=== PATIENT | female | born 1985 | race Caucasian/White ===

== ENCOUNTER 2018-12-01 11:37 | Outpatient (CLI) | payer MEDICAID ==
[~2018-12-01] VITALS: Ht 162.6 cm; Wt 102.3 kg
[~2018-12-01 11:37] MED LIST: LEVO300T8; METH-480 BU; METH-480 PO; PREN-46 PO; PREN1TAB17 BU
[2018-12-01 11:41] VITALS: Ht 162.6 cm; Wt 102.3 kg
[2018-12-01] MEDS ORDERED: INSU100C SQ (11:54)
[2018-12-01] MEDS ORDERED: NOVO7030 SC (11:54)
[2018-12-01] MEDS ORDERED: LEVO-86 PO (11:54)
[2018-12-01] MEDS ORDERED: METF100010 PO (11:54)
[2018-12-01] MEDS ORDERED: CEFTRIAXONE 1 GM INJ IM ONE (12:00)
[2018-12-01] MEDS ORDERED: CEFTRIAXONE 1 GM/50 ML (PMX) 50 ML IVPB ONE (12:30)
[2018-12-01] MEDS: SOD CHLORIDE 0.9% 1,000 ML IV SCH ×2 (12:46→14:33)
[2018-12-01] MEDS ORDERED: ACETAMINOPHEN 325 MG TAB PO ONE (13:30)
[2018-12-01] MEDS ORDERED: INSULIN ASPART [NOVOLOG] 3 ML PEN SC ONE (13:30)
[2018-12-01] MEDS ORDERED: ACETAMINOPHEN 1000MG/100ML IV 100 ML IVPB ONE (14:00)
[2018-12-01] MEDS ORDERED: ACCU-CHEK XX ONE (15:30)
--- NOTE | 2018-12-01 17:08 | PN ---
Triage Information Date/Time December 01, 2018 Reason for visit: Abd/pelvic pain (left, lower quadrant) Weeks of Gestation 9w 6d /Para 2/1 Diabetes: pre-gestational Diabetes management: insulin controlled, oral agent Hypertention: none Additional information Pt reports left lower quadrant pain since yesterday. She went to [facility] and had labwork, an US and was sent home on Ampicillin, in case it is her diverticulitis, and was also given [place]. She did not fill these prescriptions yet. Pt reports slight brown d/c, ongoing. She had an US at [facility] and in my office which show a viable and a small blood clot in the lower uterine segment. She denies any urgency or frequency or dysuria. No fever, chills, nausea or vomiting. PMHx: DM. Was on Metformin prior to with poorly controlled blood sugars and an initial HgbA1c of 11.8 and a RBS of 320. She is now on Metformin 1000 BID and Insulin: Humalog 18u with each meal. She is being followed by Dr Davenport. Hypothyroidism after a I-131 ablation. Asthma. PCOS. H/o diverticulitis. PSHx: partial thyroidectomy. Liposuction. Appendectomy. Cholecystectomy. x 1 at 31 weeks for severe PIH. NKDA. Objective Afebrile, normotensive. Heart Rate: 140's Results/Medications Results 24 hrs Laboratory Tests Test 12/01/18 11:39 12/01/18 12:40 12/01/18 15:46 Urine Color YELLOW Urine Clarity SLIGHTLY CLOUDY A Urine pH 5.0 Urine Specific [place] 1.021 Urine Ketones NEGATIVE Urine Nitrite NEGATIVE Urine Bilirubin NEGATIVE Urine Urobilinogen NEGATIVE Urine Leukocyte Esterase TRACE A Urine Microscopic RBC 1 Urine Microscopic WBC 0 Urine Squamous FEW Epithelial Cells Urine Bacteria FEW A Urine Mucus FEW A Urine Hemoglobin NEGATIVE Urine Glucose NEGATIVE Urine Total Protein NEGATIVE Bedside Glucose 206 105 Disposition: Discharge Assessment/Plan A: IUP at 9w 6d. Left lower quadrant pain. Possible kidney stone. P: Pt was given 2 liters of NS and one dose of IV Tylenol. She was given her 18 units of Humalog as she did not take her morning Metformin nor her AM insulin as she did not eat breakfast and ate lunch in the cafeteria (a tuna melt) and needs her insulin but did not have the needles for her own insulin pen?!? Pt reports a headache and the same pain. Pt's urine was concentrated and cloudy and she has only urinated once since at the hospital after 2 liters. She says it is a bit greenskeeper in color. A urine culture was done. Discussed with the pt that this does not appear to be an OB-Geological Engineering Teacher problem but a medical problem. On US we have not seen anything to account for the left sided pain. The is viable. At this early of a stage any pain related to bleeding or a blood clot would be central, not left-sided. She does not have an appendix. This leaves either diverticulitis for which the antibiotics should help or a kidney stone and usually home management is reasonable with hydration and pain meds and she has agreed to return to the emergency room if it does not resolve. She opted to not go down to the ER at this time. Pt is discharged home and is to fill the Rx's given to her by [facility]. JUAN JOSÉ DOWD MD Dec 01, 2018 16:52
--- NOTE | 2018-12-01 17:27 | TRIAGE ---
OB Triage Datetime Report Generated by CPN: 12/01/2018 17:26 Datetime: 12/01/2018 13:00 Stage of : OB Triage Heart Rate FHR Baseline Rate: 165 Monitor Mode: Doppler Comments: Audible Heart tones heard Datetime: 12/01/2018 12:29 Time of Arrival: 12/01/2018 11:30 Arrived By: Wheelchair Arrived From: Dr. Office Chief Complaint: Left lower quadrant pain Vaginal Bleeding: Dark Red Patient Complaints: Other Provider Notified: Bert Initial Plan: Orders for IV hydration with NS, Rocephin 1G, UA, Urine Culture Datetime: 12/01/2018 12:05 Stage of : OB Triage Datetime: 12/01/2018 12:00 Stage of : OB Triage Maternal Assessment Level of Consciousness: Fully Conscious DTR's/Clonus: DTRs 2+ Headache: Denies Blurred Vision: No Respiratory Effort: Unlabored; Regular Rhythm; Equal Expansion Breath Sounds, Left: Clear and Equal Breath Sounds, Right: Clear and Equal Nausea/Vomiting: Denies RUQ Epigastric Pain: Denies Lower Extremities Edema: None Degree: None Upper Extremities Edema: None Degree: None Facial Edema: None Temperature Route: Oral Fall Risk Assessment History of Falling: (0) No Secondary Diagnosis: (0) No Ambulatory Aid: (0) Bedrest/Nurse Assist IV Therapy: (0) No Gait: (0) Normal/Bedrest/Immobile Mental Status: (0) Oriented to Own Ability Fall Score: 0 Fall Risk Score Definition: No Risk: No action required
== END 2018-12-01 16:08 | disposition home or self-care (01) ==
LOC: OBT 11:37 → L-D 11:37 → OBT 16:08
PROVIDERS: ATTEND Obstetrics & Gynecology
DX: O26.891 Other specified pregnancy related conditions, first trimester (principal); R10.32 Left lower quadrant pain; O24.414 Gestational diabetes mellitus in pregnancy, insulin controlled; Z3A.09 9 weeks gestation of pregnancy
CPT/HCPCS: 36415; 81001; 82962; 87086; 96365; J0131; J0696; J1815; J7030; Z7500; G0463

== ENCOUNTER 2018-12-02 05:59 | Observation (INO) | payer MEDICAID ==
[~2018-12-02] VITALS: Ht 162.6 cm; Wt 101.0 kg
[~2018-12-02 05:59] MED LIST changes: +INSU100C SQ; +LEVO-86 PO; -LEVO300T8; +METF100010 PO; -METH-480 BU; -METH-480 PO; +NOVO7030 SC; -PREN1TAB17 BU
[2018-12-02] MEDS ORDERED: morphine 2 MG INJ IV STA (06:46)
[2018-12-02] MEDS ORDERED: SOD CHLORIDE 0.9% 150 ML IV STA (06:46)
[2018-12-02] MEDS ORDERED: ONDANSETRON 4 MG INJ IV STA (06:46)
[2018-12-02] MEDS ORDERED: PIPER-TAZO 3.375 GM IV (PMX) 100 ML IVPB ONE (08:00)
--- NOTE | 2018-12-02 08:04 | ERD ---
ER Documentation Chief Complaint Chief Complaint L flank pain since Tuesday w/hematuria vs VB; advised to come x further tx HPI 33-year-old female presents the emergency room with left lower quadrant abdominal pain. Patient has been in the emergency department now 3 times for similar type complaints. Her pain began approximately 3 days ago when she had the acute onset of an isolated left lower quadrant and left flank pain. This was associated with hematuria and questionable vaginal bleeding. She was evaluated in outside emergency department where apparently initial diagnostic tests demonstrated a viable and she was treated empirically for diverticulitis. Because of her , no further imaging was performed. She then followed up with her arts administrator yesterday who demonstrated an intrauterine that was viable. Patient however continued to have pain despite the use of fluids and pain medication during the ER evaluation as well as outpatient antibiotics for presumed diverticulitis. She returns this morning with her third evaluation for left lower quadrant abdominal pain which has not significantly changed. Pain continues to be localized in the left lower quadrant. She states that she continues to have hematuria and possible small amount of vaginal bleeding. She denies fevers, chills. She reports nausea without vomiting. She reports no diarrhea. ROS All systems reviewed and are negative except as per history of present illness. Medications Home Meds Reported Medications Insulin Isophan/Regular (Humulin 70/30) 100 Units/Ml Susp, 25 UNIT SC HS, EA 12/01/18 Insulin Lispro (Humalog) 100 Unit/1 Ml Cartridge, 18 UNIT SQ AC MEALS, EA 12/01/18 Levothyroxine Sodium (Levothroid) 100 Mcg Tablet, 39 MCG PO BEFORE BREAKFAST, #30 TAB 12/01/18 Metformin Hcl* (Metformin Hcl*) 1,000 Mg Tablet, 1000 MG PO WITH BREAKFAST DINNE, #60 TAB 12/01/18 Vit #108/Iron/Fa ( ONE TABLET) 1 Each Tablet, 1 EACH PO DAILY 08/07/13 Discontinued Reported Medications Methyldopa* (Aldomet*) 500 Mg Tab, 500 MG BU DAILY 08/28/13 Vit-Iron Fumarate-FA ( Tablet) 1 Each Tablet, 1 EACH BU DAILY 08/28/13 Methyldopa* (Aldomet*) 500 Mg Tab, 500 MG PO BID 08/18/13 Levothyroxine Sodium (Levothroid) 300 Mcg Tablet, 300 MCG DAILY 08/07/13 Allergies Allergies: Coded Allergies: No Known Allergies (Verified Allergy, Unknown, 12/01/18) FmHx Noncontributory for chief complaint Physical Exam Vitals Vital Signs Date Temp Pulse Resp B/P (MAP) Pulse Ox O2 O2 Flow FiO2 Time Delivery Rate 12/02/18 99.2 75 20 147/92 100 06:12 (110) Physical Exam GENERAL: The patient is well developed and appropriate for usual state of health in no apparent distress. She appears uncomfortable HEENT: Pupils equal, round, and reactive to light. EOMI. There is no scleral icterus. NECK: C-spine is soft and supple, there is no meningismus. There is no cervical lymphadenopathy. LUNGS: Clear to auscultation bilaterally. There are no rales, wheezes or rhonchi. HEART: Regular rate and rhythm, no murmurs, clicks, rubs or gallops. ABDOMEN: Soft, non-tender, non-distended. There are bowel sounds in all four quadrants. No rebound or guarding. EXTREMITIES: There is no peripheral cyanosis or edema. No focal swelling or erythema. NEURO: The patient moves all four extremities with 5/5 strength. Cranial nerves II - XII are intact. Normal gait. Alert and oriented SKIN: There is no apparent rash or petechiae. HEME/LYMPHATIC: There is no evidence of excessive bruising or lymphedema. PSYCHIATRIC: The patient does not appear anxious or depressed. Result Diagram: 12/02/18 0640 12/02/18 0640 Results 24 hrs Laboratory Tests Test 12/02/18 04:57 12/02/18 06:40 Urine Color STRAW Urine Clarity CLEAR Urine pH 5.0 Urine Specific [place] 1.005 Urine Ketones NEGATIVE mg/dL Urine Nitrite NEGATIVE mg/dL Urine Bilirubin NEGATIVE mg/dL Urine Urobilinogen NEGATIVE mg/dL Urine Leukocyte Esterase NEGATIVE Jordy/ul Urine Microscopic RBC 0 /HPF Urine Microscopic WBC 0 /HPF Urine Squamous Epithelial Cells FEW /HPF Urine Bacteria FEW /HPF Urine Hemoglobin 2+ mg/dL Urine Glucose NEGATIVE mg/dL Urine Total Protein NEGATIVE mg/dl White Blood Count 8.8 10^3/ul Red Blood Count 3.82 10^6/ul Hemoglobin 11.5 g/dl Hematocrit 34.1 % Mean Corpuscular Volume 89.3 fl Mean Corpuscular Hemoglobin 30.1 pg Mean Corpuscular Hemoglobin Concent 33.7 g/dl Red Cell Distribution Width 13.2 % Platelet Count 384 10^3/UL Mean Platelet Volume 10.2 fl Immature Granulocytes % 0.900 % Neutrophils % 58.3 % Lymphocytes % 32.0 % Monocytes % 7.3 % Eosinophils % 0.9 % Basophils % 0.6 % Nucleated Red Blood Cells % 0.0 /100WBC Immature Granulocytes # 0.080 10^3/ul Neutrophils # 5.1 10^3/ul Lymphocytes # 2.8 10^3/ul Monocytes # 0.6 10^3/ul Eosinophils # 0.1 10^3/ul Basophils # 0.1 10^3/ul Nucleated Red Blood Cells # 0.0 10^3/ul Sodium Level 139 mmol/L Potassium Level 4.1 mmol/L Chloride Level 108 mmol/L Carbon Dioxide Level 22 mmol/L Anion Gap 9 Blood Urea Nitrogen 9 mg/dl Creatinine 0.41 mg/dl Est Glomerular Filtrat Rate mL/min > 60 mL/min Glucose Level 133 mg/dl Calcium Level 9.3 mg/dl Total Bilirubin 0.3 mg/dl Direct Bilirubin 0.00 mg/dl Indirect Bilirubin 0.3 mg/dl Aspartate Amino Transf (AST/SGOT) 18 IU/L Alanine Aminotransferase (ALT/SGPT) 15 IU/L Alkaline Phosphatase 97 IU/L Total Protein 7.2 g/dl Albumin 3.8 g/dl Globulin 3.40 g/dl Albumin/Globulin Ratio 1.11 Lipase 107 U/L Current Medications Medications Dose Sig/Cm Start Time Status Last (Trade) Ordered Route PRN Stop Time Admin Dose Reason Admin Sodium 150 ml @ Q1H STAT 12/02/18 DC 12/02/18 Chloride 150 mls/hr IV 06:46 06:54 12/02/18 07:45 Morphine 2 mg ONCE STAT 12/02/18 DC 12/02/18 Sulfate IV 06:46 06:54 (morphine) 12/02/18 06:48 Ondansetron 4 mg ONCE STAT 12/02/18 DC 12/02/18 HCl (Zofran IV 06:46 06:54 Inj) 12/02/18 06:48 Piperacillin 100 ml @ ONCE ONCE 12/02/18 Sod/ 200 mls/hr IVPB 08:00 Tazobactam 12/02/18 08:29 Sod Procedures/MDM Patient was taken to a room, seen and evaluated. Comfort measures were initiated. Diagnostic tests were ordered and reviewed. RADIOLOGY: Reviewed with the radiologist CONSULTATION: Hospitalist was notified for admission after discussion with Dr. Noel, her OBGYN REEVALUATION: Serial examinations of the abdomen remained benign, but she continued to be somewhat uncomfortable. Diagnostic tests were discussed with her and arrangements were made for observation MEDICAL DECISION MAKIN-year-old female presents the emergency department left lower quadrant abdominal pain in the setting of a history of diverticulitis. Patient continues to have ongoing pain despite outpatient antibiotics for presumed diverticulitis. Her diagnostic workup today demonstrates evidence of a viable intrauterine with no evidence of kidney stones based on her ultrasound. Her urinalysis shows no evidence of urinary tract infection. However, she continues to be significantly uncomfortable. As per my conversations with the patient and her X RAY CONSULTANT, she w ill be admitted for pain control as well as an MRI evaluation of the abdomen to further diagnose if this truly is diverticulitis. She has already had her gallbladder and her appendix removed, so these concerns are not present. Departure Diagnosis: Primary Impression: Flank pain Condition: PRECIOUS Self Dec 02, 2018 08:04
[2018-12-02 09:50] VITALS: BP 113/56; PULSE 62; RESP 16
[2018-12-02 10:10] VITALS: Ht 162.6 cm; Wt 101.0 kg
[2018-12-02] MEDS ORDERED: D5W-0.45 NACL + KCL 20 MEQ 1,000 ML IV SCH (10:34)
[2018-12-02] MEDS ORDERED: GLUCOSE GEL 15 GRAM TUBE BUCCAL PRN (11:00)
[2018-12-02] MEDS ORDERED: HYDROCODONE/APAP (5/325) TAB PO PRN (11:00)
[2018-12-02] MEDS ORDERED: GLUCOSE GEL 15 GRAM TUBE PO PRN ×2 (11:00)
[2018-12-02] MEDS ORDERED: NACL 0.9% 3 ML SYG IV SCH (11:00)
[2018-12-02] MEDS ORDERED: DEXTROSE 50% 50 ML SYRINGE IV PRN ×2 (11:00)
[2018-12-02] MEDS ORDERED: morphine 2 MG INJ IV PRN (11:00)
[2018-12-02] MEDS ORDERED: GLUCAGON 1 MG INJ IM PRN (11:00)
[2018-12-02] MEDS ORDERED: ONDANSETRON 4 MG INJ IV PRN (11:00)
[2018-12-02] MEDS: LEVOTHYROXINE 25 MCG TAB PO SCH (11:45)
[2018-12-02] MEDS: INSULIN ASPART [NOVOLOG] 3 ML PEN SC SCH ×4 (12:55→21:00)
[2018-12-02] MEDS ORDERED: [UNRECOGNIZED DRUG - OTHER] PO SCH (13:00)
[2018-12-02] MEDS ORDERED: PRENATAL VIT PO SCH (13:00)
[2018-12-02] MEDS ORDERED: IRON PO SCH (13:00)
--- NOTE | 2018-12-02 13:03 | HP ---
Date/Time of Note Date/Time of Note DATE: 12/02/18 TIME: 12:50 Assessment/Plan VTE Prophylaxis SCD applied (from Nsg): Yes Pharmacological prophylaxis: NA/contraindicated Pharm contraindication: low risk/ambulating Lines/Catheters IV Catheter Type (from Nrsg): Peripheral IV Assessment/Plan Hospital Course 1. Abdominal pain Etiology is not fully clear at this time but may be secondary to abdominal wall pain, patient is tender to palpation throughout the pannus and due to obesity and expanding abdominal girth patient may have pain in the abdominal wall muscles No evidence of sepsis at this time to suggest diverticulitis in addition diverse location of pain goes against diverticulitis, patient denies fever or chills now or recently No evidence of UTI or nephrolithiasis No reports of constipation, diarrhea, nausea and vomiting to suggest gastroenteritis Patient with history of cholecystectomy and appendectomy No indication for antibiotics at this time Discuss case with patient's OB Dr. Noel Pain control 2. Intrauterine gestation OB to manage 3. Diabetes Resume home insulin Check A1c Carb controlled diet Hold home metformin 4. History of hyperthyroidism status post thyroidectomy now on replacement therapy Continue home Synthroid 5. Morbid obesity Lifestyle changes 6. Anemia of Monitor Prophylaxis: SCDs Result Diagram: 12/02/18 0640 12/02/18 0640 Results 24hrs Laboratory Tests Test 12/02/18 04:57 12/02/18 06:40 Urine Color STRAW Urine Clarity CLEAR Urine pH 5.0 Urine Specific [place] 1.005 Urine Ketones NEGATIVE Urine Nitrite NEGATIVE Urine Bilirubin NEGATIVE Urine Urobilinogen NEGATIVE Urine Leukocyte Esterase NEGATIVE Urine Microscopic RBC 0 Urine Microscopic WBC 0 Urine Squamous Epithelial Cells FEW Urine Bacteria FEW A Urine Hemoglobin 2+ H Urine Glucose NEGATIVE Urine Total Protein NEGATIVE White Blood Count 8.8 Red Blood Count 3.82 L Hemoglobin 11.5 L Hematocrit 34.1 L Mean Corpuscular Volume 89.3 Mean Corpuscular Hemoglobin 30.1 Mean Corpuscular Hemoglobin Concent 33.7 Red Cell Distribution Width 13.2 Platelet Count 384 Mean Platelet Volume 10.2 Immature Granulocytes % 0.900 H Neutrophils % 58.3 Lymphocytes % 32.0 Monocytes % 7.3 Eosinophils % 0.9 Basophils % 0.6 Nucleated Red Blood Cells % 0.0 Immature Granulocytes # 0.080 H Neutrophils # 5.1 Lymphocytes # 2.8 Monocytes # 0.6 Eosinophils # 0.1 Basophils # 0.1 Nucleated Red Blood Cells # 0.0 Sodium Level 139 Potassium Level 4.1 Chloride Level 108 Carbon Dioxide Level 22 Anion Gap 9 Blood Urea Nitrogen 9 Creatinine 0.41 L Est Glomerular Filtrat Rate mL/min > 60 Glucose Level 133 Calcium Level 9.3 Total Bilirubin 0.3 Direct Bilirubin 0.00 Indirect Bilirubin 0.3 Aspartate Amino Transf (AST/SGOT) 18 Alanine Aminotransferase (ALT/SGPT) 15 Alkaline Phosphatase 97 Total Protein 7.2 Albumin 3.8 Globulin 3.40 H Albumin/Globulin Ratio 1.11 Lipase 107 HPI/ROS Admit Date/Time Admit Date/Time Dec 02, 2018 at 08:05 Hx of Present Illness Patient is a 33-year-old female with a history of hypothyroidism as a child status post thyroid resection on thyroid therapy, morbid obesity, diverticulitis, insulin dependent diabetes. Patient presents with 3 days of stabbing pain in the left lower quadrant which is now begun to include the mid lower quadrant and right lower quadrant. Patient states that the severity of the pain is similar to previous episodes of diverticulitis but that the various locations are different from previous episodes. Patient was at [facility] 3 days ago and was prescribed antibiotics for possible recurrent diverticulitis, CT abdomen has been unable to be done secondary to intrauterine gestation. Patient saw her OB who recommended that she not take her antibiotics as it was unclear if this pain is indeed diverticulitis. Of note patient reported some blood in the urine but UA is negative for infection or blood patient denies any further blood in the urine, renal ultrasound shows no evidence of hydronephrosis or nephrolithiasis. Patient was in OB triage yesterday and was discharged but pain did return and patient presented to the ER this morning. In the ER labs and vitals did not suggest sepsis, once again CT abdomen is unable to be done due to . Patient was given pain meds and pain is currently improved, patient denies such symptoms in the past. Patient denies any nausea vomiting, constipation or diarrhea, dysuria, fevers and chills. Of note patient does have a history of appendectomy and cholecystectomy. ROS Constitutional: no complaints, improved Eyes: no complaints ENT: no complaints Respiratory: no complaints Cardiovascular: no complaints Gastrointestinal: pain Genitourinary: no complaints Musculoskeletal: no complaints Skin: no complaints Neurologic: no complaints Endocrine: no complaints Lymphatic: no complaints Psychological: no complaints, nl mood/affect Immunologic: no complaints PMH/Family/Social Past Medical History As per HPI Medications Current Medications Potassium Chloride/Dextrose/ Sod Cl 1,000 ml @ 100 mls/hr Q10H IV Last administered on 12/02/18at 10:56; Admin Dose 100 MLS/HR; Start 12/02/18 at 10:34 IV Flush (NS 3 ml) 3 ml PER PROTOCOL IV ; Start 12/02/18 at 11:00 Ondansetron HCl (Zofran Inj) 4 mg Q6H PRN IV NAUSEA/VOMITING; Start 12/02/18 at 11:00 Acetaminophen (Tylenol Tab) 650 mg Q6H PRN PO .PAIN 1-3 OR TEMP; Start 12/02/18 at 11:00 Acetaminophen/ Hydrocodone Bitart ([place] (5/325)) 1 tab Q6H PRN PO .MOD PAIN 4- 6; Start 12/02/18 at 11:00 Morphine Sulfate (morphine) 2 mg Q4H PRN IV .SEVERE PAIN 7-10; Start 12/02/18 at 11:00 Insulin Glargine (Lantus) 15 units DAILY@2000 SC ; Start 12/02/18 at 20:00 Insulin Aspart (Novolog Insulin Pen) NOVOLOG *MILD* ALGORI... Q4 SC ; Start 12/02/18 at 13:00 Miscellaneous Information 1 ea NOTE XX ; Start 12/02/18 at 11:00 Glucose (Glutose) 15 gm Q15M PRN PO DECREASED GLUCOSE; Start 12/02/18 at 11:00 Glucose (Glutose) 22.5 gm Q15M PRN PO DECREASED GLUCOSE; Start 12/02/18 at 11:00 Dextrose (D50w Syringe) 25 ml Q15M PRN IV DECREASED GLUCOSE; Start 12/02/18 at 11:00 Dextrose (D50w Syringe) 50 ml Q15M PRN IV DECREASED GLUCOSE; Start 12/02/18 at 11:00 Glucagon (Glucagen) 1 mg Q15M PRN IM DECREASED GLUCOSE; Start 12/02/18 at 11:00 Glucose (Glutose) 15 gm Q15M PRN BUCCAL DECREASED GLUCOSE; Start 12/02/18 at 11:00 Levothyroxine Sodium (Synthroid) 37.5 mcg DAILY@06 PO Last administered on 12/02/18at 11:45; Admin Dose 37.5 MCG; Start 12/02/18 at 11:00 Coded Allergies: No Known Allergies (Verified Allergy, Unknown, 12/01/18) Past Surgical History Past Surgical Hx: appendectomy, cholecystectomy Family History Significant Family History: no pertinent family hx Social History Alcohol Use: rarely Smoking Status: Former smoker Drug Use: none Exam/Review of Systems Vital Signs Vitals Vital Signs Date Temp Pulse Resp B/P (MAP) Pulse Ox O2 O2 Flow FiO2 Time Delivery Rate 12/02/18 98.0 62 16 113/56 100 09:50 (75) 12/02/18 Room Air 09:01 Exam Constitutional: alert, oriented Respiratory: clear to auscultation Cardiovascular: regular rate and rhythm Gastrointestinal: soft, tender (Mild tenderness to palpation in the pannus); No distended Musculoskeletal: nl extremities to inspection ARSENIO GAGE Dec 02, 2018 13:01
[2018-12-02] MEDS: PRENATAL VITAMIN PO SCH (14:39)
[2018-12-02] MEDS: ACETAMINOPHEN 325 MG TAB PO PRN ×2 (14:39→19:57)
[2018-12-02 15:43] VITALS: BP 118/58; PULSE 61; RESP 18
[2018-12-02] MEDS ORDERED: INSULIN LISPRO 18 UNIT SQ SCH (17:25)
[2018-12-02 19:55] VITALS: BP 128/61; PULSE 67; RESP 18
[2018-12-02] MEDS ORDERED: INSULIN GLARGINE [LANTus] (100 UNITS/ML) SYG SC SCH (20:00)
[2018-12-02] MEDS: INSULIN GLARGINE [LANTus] (100 UNITS/ML) SYG SC SCH (20:04)
[2018-12-02] MEDS: ACCUCHECK AT 2AM (Patients on SS coverage) XX SCH (21:15)
[2018-12-03] MEDS ORDERED: ACCU-CHEK XX SCH (02:00)
[2018-12-03 02:25] VITALS: BP 119/69; PULSE 58; RESP 18
[2018-12-03] MEDS: ACETAMINOPHEN 325 MG TAB PO PRN ×3 (04:16→18:15)
[2018-12-03] MEDS: LEVOTHYROXINE 25 MCG TAB PO SCH (06:45)
[2018-12-03] MEDS ORDERED: LEVOTHYROXINE (25 MCG/ML PO SYG) PO SCH (07:00)
[2018-12-03 08:27] VITALS: BP 127/60; PULSE 58; RESP 15
[2018-12-03] MEDS: PRENATAL VITAMIN PO SCH (08:55)
[2018-12-03] MEDS: INSULIN ASPART [NOVOLOG] 3 ML PEN SC SCH ×7 (08:59→20:26)
[2018-12-03 16:26] VITALS: BP 127/81; PULSE 70; RESP 17
--- NOTE | 2018-12-03 18:36 | PN ---
Date/Time of Note Date/Time of Note DATE: 12/03/18 TIME: 18:22 Assessment/Plan VTE Prophylaxis Risk score (from Nsg)>0 risk: 2 SCD applied (from Nsg): Yes Pharmacological prophylaxis: NA/contraindicated Pharm contraindication: low risk/ambulating Lines/Catheters IV Catheter Type (from Nrsg): Peripheral IV Urinary Cath still in place: No Assessment/Plan Hospital Course 1. Abdominal pain-etiology unclear OB ultrasound does show a single live intrauterine gestation as well as mild subchorionic hemorrhage and patient does continue to have spotting Have spoken to OB Dr. Noel who does not believe that pain is related to the sub-chorionic hemorrhage as patient is in the first trimester No evidence of sepsis at this time to suggest diverticulitis in addition diverse location of pain goes against diverticulitis, patient denies fever or chills now or recently Of note patient's pain started in the left but now involves other quadrants, pain is still most severe though in the left lower quadrant Consider MRI of the abdomen tomorrow if pain does not subside No evidence of UTI or nephrolithiasis No reports of constipation, diarrhea, nausea and vomiting to suggest gastroenteritis Patient with history of cholecystectomy and appendectomy No indication for antibiotics at this time Pain control 2. Intrauterine gestation OB to manage 3. Diabetes Continue home insulin A1c 9.4 Carb controlled diet Hold home metformin 4. History of hyperthyroidism status post thyroidectomy now on replacement therapy Continue home Synthroid 5. Morbid obesity Lifestyle changes 6. Anemia of Monitor Prophylaxis: SCDs DC planning: Etiology of pain still unclear, have spoken to OB and pain is not likely OB related, patient may require MRI tomorrow if pain does not improve Result Diagram: 12/03/18 0433 12/03/18 0433 Results 24hrs Laboratory Tests Test 12/02/18 19:59 12/03/18 04:33 12/03/18 04:41 12/03/18 08:53 Bedside Glucose 151 158 White Blood Count 7.9 Red Blood Count 3.61 L Hemoglobin 10.8 L Hematocrit 32.4 L Mean Corpuscular 89.8 Volume Mean Corpuscular 29.9 Hemoglobin Mean Corpuscular 33.3 Hemoglobin Concent Red Cell 12.8 Distribution Width Platelet Count 362 Mean Platelet Volume 10.3 Immature 0.800 H Granulocytes % Neutrophils % 58.5 Lymphocytes % 31.6 Monocytes % 7.6 Eosinophils % 1.1 Basophils % 0.4 Nucleated Red Blood 0.0 Cells % Immature 0.060 H Granulocytes # Neutrophils # 4.6 Lymphocytes # 2.5 Monocytes # 0.6 Eosinophils # 0.1 Basophils # 0.0 Nucleated Red Blood 0.0 Cells # Sodium Level 137 Potassium Level 4.7 Chloride Level 103 Carbon Dioxide Level 25 Anion Gap 9 Blood Urea Nitrogen 11 Creatinine 0.45 Est Glomerular > 60 Filtrat Rate mL/min Glucose Level 148 Calcium Level 9.2 Phosphorus Level 5.5 H Magnesium Level 1.7 Hemoglobin A1c 9.4 H Test 12/03/18 12:42 12/03/18 18:05 Bedside Glucose 116 172 Subjective 24 Hr Interval Summary Gastrointestinal: pain Exam/Review of Systems Exam Vitals Vital Signs Date Temp Pulse Resp B/P (MAP) Pulse Ox O2 O2 Flow FiO2 Time Delivery Rate 12/03/18 98.2 70 17 127/81 99 Room Air 16:26 (96) Intake and Output 12/02/18 12/02/18 12/03/18 1515:00 23:00 07:00 IntakeIntake Total 250 ml 400 ml BalanceBalance 250 ml 400 ml Constitutional: alert, oriented Respiratory: clear to auscultation Cardiovascular: regular rate and rhythm Gastrointestinal: soft, tender; No distended Musculoskeletal: nl extremities to inspection Results Results 24hrs Laboratory Tests Test 12/02/18 19:59 12/03/18 04:33 12/03/18 04:41 12/03/18 08:53 Bedside Glucose 151 158 White Blood Count 7.9 Red Blood Count 3.61 L Hemoglobin 10.8 L Hematocrit 32.4 L Mean Corpuscular 89.8 Volume Mean Corpuscular 29.9 Hemoglobin Mean Corpuscular 33.3 Hemoglobin Concent Red Cell 12.8 Distribution Width Platelet Count 362 Mean Platelet Volume 10.3 Immature 0.800 H Granulocytes % Neutrophils % 58.5 Lymphocytes % 31.6 Monocytes % 7.6 Eosinophils % 1.1 Basophils % 0.4 Nucleated Red Blood 0.0 Cells % Immature 0.060 H Granulocytes # Neutrophils # 4.6 Lymphocytes # 2.5 Monocytes # 0.6 Eosinophils # 0.1 Basophils # 0.0 Nucleated Red Blood 0.0 Cells # Sodium Level 137 Potassium Level 4.7 Chloride Level 103 Carbon Dioxide Level 25 Anion Gap 9 Blood Urea Nitrogen 11 Creatinine 0.45 Est Glomerular > 60 Filtrat Rate mL/min Glucose Level 148 Calcium Level 9.2 Phosphorus Level 5.5 H Magnesium Level 1.7 Hemoglobin A1c 9.4 H Test 12/03/18 12:42 12/03/18 18:05 Bedside Glucose 116 172 Medications Medication Current Medications IV Flush (NS 3 ml) 3 ml PER PROTOCOL IV ; Start 12/02/18 at 11:00 Ondansetron HCl (Zofran Inj) 4 mg Q6H PRN IV NAUSEA/VOMITING; Start 12/02/18 at 11:00 Acetaminophen (Tylenol Tab) 650 mg Q6H PRN PO .PAIN 1-3 OR TEMP Last administered on 12/03/18at 18:15; Admin Dose 650 MG; Start 12/02/18 at 11:00 Acetaminophen/ Hydrocodone Bitart (Forest (5/325)) 1 tab Q6H PRN PO .MOD PAIN 4- 6; Start 12/02/18 at 11:00 Morphine Sulfate (morphine) 2 mg Q4H PRN IV .SEVERE PAIN 7-10; Start 12/02/18 at 11:00 Miscellaneous Information 1 ea NOTE XX ; Start 12/02/18 at 11:00 Glucose (Glutose) 15 gm Q15M PRN PO DECREASED GLUCOSE; Start 12/02/18 at 11:00 Glucose (Glutose) 22.5 gm Q15M PRN PO DECREASED GLUCOSE; Start 12/02/18 at 11:00 Dextrose (D50w Syringe) 25 ml Q15M PRN IV DECREASED GLUCOSE; Start 12/02/18 at 11:00 Dextrose (D50w Syringe) 50 ml Q15M PRN IV DECREASED GLUCOSE; Start 12/02/18 at 11:00 Glucagon (Glucagen) 1 mg Q15M PRN IM DECREASED GLUCOSE; Start 12/02/18 at 11:00 Glucose (Glutose) 15 gm Q15M PRN BUCCAL DECREASED GLUCOSE; Start 12/02/18 at 11:00 Levothyroxine Sodium (Synthroid) 37.5 mcg DAILY@06 PO Last administered on 12/03/18at 06:45; Admin Dose 37.5 MCG; Start 12/02/18 at 11:00 Insulin Glargine (Lantus) 25 units DAILY@2000 SC Last administered on 12/02/18at 20:04; Admin Dose 25 UNITS; Start 12/02/18 at 20:00 Insulin Aspart (Novolog Insulin Pen) 18 unit AC MEALS SC Last administered on 12/03/18at 18:10; Admin Dose 18 UNIT; Start 12/02/18 at 17:25 Prenat Multivit/ [place]/Iron/Folic Ac () 1 tab DAILY PO Last administered on 12/03/18at 08:55; Admin Dose 1 TAB; Start 12/02/18 at 14:00 Insulin Aspart (Novolog Insulin Pen) NOVOLOG *MILD* ALGORITHM WITH MEALS BEDTIME SC Last administered on 12/03/18at 18:10; Admin Dose 1 UNIT; Start 12/02/18 at 21:00 Diagnostic Test (Pha) (Accu-Chek) 1 ea 02 XX ; Start 12/03/18 at 02:00 ARSENIO GAGE Dec 03, 2018 18:32
[2018-12-03 19:26] VITALS: BP 119/56; PULSE 67; RESP 16
[2018-12-03] MEDS ORDERED: MAGNESIUM SULFATE 2 GM/50 ML 50 ML IVPB ONE (19:30)
[2018-12-03] MEDS: INSULIN GLARGINE [LANTus] (100 UNITS/ML) SYG SC SCH (20:25)
[2018-12-04 01:56] VITALS: BP 125/67; PULSE 67; RESP 18
[2018-12-04] MEDS: ACCUCHECK AT 2AM (Patients on SS coverage) XX SCH (02:00)
[2018-12-04] MEDS: LEVOTHYROXINE 25 MCG TAB PO SCH (06:12)
[2018-12-04] MEDS: ACETAMINOPHEN 325 MG TAB PO PRN ×2 (07:35→14:52)
[2018-12-04 07:51] VITALS: BP 121/62; PULSE 72; RESP 19
[2018-12-04] MEDS: PRENATAL VITAMIN PO SCH (09:04)
[2018-12-04] MEDS: INSULIN ASPART [NOVOLOG] 3 ML PEN SC SCH ×4 (09:06→14:03)
--- NOTE | 2018-12-04 11:29 | PDOCDIS ---
Discharge Instructions CONDITION [id number] Patient Condition: Guatp1d Stable HOME CARE INSTRUCTIONS: Myors8Il Diet Instructions: Azctp7l Regular ACTIVITY: [id number] Activity Restrictions: Ghuvh0r Slowly Increase Activity Avoid heavy lifting [id number] Bathing Restrictions: Btlcy9l Shower FOLLOW UP/APPOINTMENTS Follow-up Plan Follow up with this week. [address] [phone] Office You are advised to take a week rest until evaluated by your [facility] ATTORNEY in the [facility]. ROSEMARY HENDERSON NP Dec 04, 2018 11:29
--- NOTE | 2018-12-04 11:38 | DS ---
Date/Time of Note Date/Time of Note DATE: 12/04/18 TIME: 11:35 Discharge Summary Admission/Discharge Info Admit Date/Time Dec 02, 2018 at 08:05 Discharge Date/Time Discharge Diagnosis 1. Abdominal pain-etiology unclear.resolved 2. Intrauterine gestation first trimester/ 3. Diabetes 4. History of hyperthyroidism status post thyroidectomy now on replacement therapy 5. Morbid obesity 6. Anemia of Patient Condition: Stable Consults ,[facility] Procedures 12/03/2018 OB ultrasound IMPRESSION: 1. Single live intrauterine with an estimated gestational age of 9 weeks 2 days by ultrasound criteria, as above. 2. Mild subchorionic hemorrhage. Renal ultrasound 12/03/2018. IMPRESSION: 1. Normal sized kidneys without hydronephrosis, intra renal masses or calculi. 2. Unremarkable urinary bladder. Hospital Course This is a 35-year-old morbidly obese female with previous history of complicated with -induced hypertension, gestational diabetes, polycystic ovarian syndrome, hypothyroidism, premature delivery, who is also currently in her first trimester, admitted with abdominal pain. Patient's ultrasound showed single live intrauterine gestation age of 9 weeks, 2 days. There was a concern of mild subchorionic hemorrhage. This was discussed with patient's OB Dr. Noel who does not believe that pain is related to the sub-chorionic hemorrhage as patient is in the first trimester. Therefore, there was no inpatient OB follow-up was recommended by the MD. Patient was then ruled out for other possible etiology of abdominal pain including urinary tract infection, gastroenteritis or others. There was no evidence of such inflammatory conditions. Patient was continued on home medication including insulin and thyroid hormone replacement. Patient was advised on lifestyle changes for underlying morbid obesity. Patient's hemoglobin remained stable. At this time, patient's abdominal pain improved. She continued to have spotting on and off but no leeanne bleeding over the last 24 hours. I spoke with patient's BOOKSEAMER BLINDSTITCH who advised me that patient had a complicated previous /delivery and she has on and at this time,off spotting with all her pregnancies. Patient can follow-up at her office by this Tuesday or Tuesday next week. There is no further imaging including MRI evaluation is indicated as patient's pain is improved. She is also eager to be discharged. Approximately 60 minutes was spent on coordinating the discharge on this patient. Patient was seen in collaboration with Dr. Guzman. Home Meds Reported Medications Insulin Isophan/Regular (Humulin 70/30) 100 Units/Ml Susp, 25 UNIT SC HS, EA 12/01/18 Insulin Lispro (Humalog) 100 Unit/1 Ml Cartridge, 18 UNIT SQ AC MEALS, EA 12/01/18 Levothyroxine Sodium (Levothroid) 100 Mcg Tablet, 39 MCG PO BEFORE BREAKFAST, #30 TAB 12/01/18 Metformin Hcl* (Metformin Hcl*) 1,000 Mg Tablet, 1000 MG PO WITH BREAKFAST DINNE, #60 TAB 12/01/18 Vit #108/Iron/Fa ( ONE TABLET) 1 Each Tablet, 1 EACH PO DAILY 08/07/13 Discontinued Reported Medications Methyldopa* (Aldomet*) 500 Mg Tab, 500 MG BU DAILY 08/28/13 Vit-Iron Fumarate-FA ( Tablet) 1 Each Tablet, 1 EACH BU DAILY 08/28/13 Methyldopa* (Aldomet*) 500 Mg Tab, 500 MG PO BID 08/18/13 Levothyroxine Sodium (Levothroid) 300 Mcg Tablet, 300 MCG DAILY 08/07/13 Follow-up Plan Follow up with this week. [address] [place] [address] Office You are advised to take a week rest until evaluated by your BOOKSEAMER BLINDSTITCH in the clinic. Primary Care Provider Suhas Davenport MD Pending Labs Laboratory Tests Test 12/03/18 12:42 12/03/18 18:05 12/03/18 20:21 12/04/18 04:42 Bedside 116 172 123 Glucose mg/dL (70-220) mg/dL (70-220) mg/dL (70-220) White Blood 8.0 Count 10^3/ul (4.8-1 0.8) Red Blood 3.72 Count 10^6/ul (4.20- 5.40) Hemoglobin 11.2 g/dl (12.0-16. 0) Hematocrit 32.8 % (37.0-47.0) Mean 88.2 Corpuscular fl (82.0-101.0 Volume ) Mean 30.1 Corpuscular pg (29.0-33.0) Hemoglobin Mean 34.1 Corpuscular g/dl (32.0-37. Hemoglobin Conc 0) ent Red Cell 12.8 Distribution % (11.5-14.5) Width Platelet Count 355 10^3/UL (140-4 15) Mean Platelet 10.2 Volume fl (7.4-10.4) Immature 1.100 Granulocytes % % (0.001-0.429 ) Neutrophils % 52.5 % (39.0-77.0) Lymphocytes % 36.3 % (15.0-51.0) Monocytes % 8.1 % (0.0-11.0) Eosinophils % 1.5 % (0.0-7.0) Basophils % 0.5 % (0.0-2.0) Nucleated Red 0.0 Blood Cells % /100WBC (0.0-0 .0) Immature 0.090 Granulocytes # 10^3/ul (0.0-0 .031) Neutrophils # 4.2 10^3/ul (1.6-7 .5) Lymphocytes # 2.9 10^3/ul (0.8-2 .9) Monocytes # 0.7 10^3/ul (0.3-0 .9) Eosinophils # 0.1 10^3/ul (0.0-0 .5) Basophils # 0.0 10^3/ul (0.0-0 .1) Nucleated Red 0.0 Blood Cells # 10^3/ul (0.0-0 .0) Sodium Level 137 mmol/L (135-14 4) Potassium 4.0 Level mmol/L (3.5-5. 1) Chloride Level 107 mmol/L (97-110 ) Carbon Dioxide 20 Level mmol/L (21-31) Anion Gap 10 (5-13) Blood Urea 12 Nitrogen mg/dl (7-20) Creatinine 0.44 mg/dl (0.44-1. 00) Est Glomerular > 60 Filtrat mL/min (>60) Rate mL/min Glucose Level 139 mg/dl (70-220) Calcium Level 9.2 mg/dl (8.4-10. 2) Magnesium 2.0 Level mg/dl (1.7-2.5 ) Test 12/04/18 08:42 Bedside 153 Glucose mg/dL (70-220) ROSEMARY HENDERSON V. [employer] INTERN Dec 04, 2018 11:38
[2018-12-04] MEDS ORDERED: WORK NOTE (13:11)
[2018-12-04 13:59] VITALS: BP 153/71; PULSE 68; RESP 18
[2018-12-04 14:30] VITALS: BP 135/76; PULSE 62; RESP 20
== END 2018-12-04 16:15 | disposition home or self-care (01) ==
LOC: E/R 05:59 → MS1 08:05
PROVIDERS: ADMIT Internal Medicine; ATTEND Internal Medicine
DX: O26.891 Other specified pregnancy related conditions, first trimester (principal); R10.9 Unspecified abdominal pain; O99.011 Anemia complicating pregnancy, first trimester; O24.111 Pre-existing type 2 diabetes mellitus, in pregnancy, first trimester; E11.9 Type 2 diabetes mellitus without complications; Z79.4 Long term (current) use of insulin; O99.211 Obesity complicating pregnancy, first trimester; E66.01 Morbid (severe) obesity due to excess calories; Z3A.09 9 weeks gestation of pregnancy
CPT/HCPCS: 36415; 76775; 76801; 80048; 80053; 81001; 82962; 83036; 83690; 83735; 84100; 85025; 96374; 96375; J1815; J2270; J2405; J2543; J3475; J3480; J7040; Z7500; Z7502; Z7610; G0378

== ENCOUNTER 2019-01-20 15:38 | Emergency (ER) | payer MEDICAID, OTHER ==
[~2019-01-20] VITALS: Wt 90.0 kg
[~2019-01-20 15:38] MED LIST changes: +WORK NOTE
[2019-01-20 15:40] VITALS: BP 152/84; PULSE 85; RESP 18
--- NOTE | 2019-01-20 16:28 | ERD ---
ER Documentation Chief Complaint Chief Complaint 18 weeks with bleeding HPI Patient is 18 weeks female with past medical history of diabetes mellitus, preeclampsia, hypothyroidism, PCOS presenting to the clinic for mild vaginal bleeding and a gush of fluid since earlier today. She admits to passage of fluid 1 week ago, which she followed up with her NURSING PROFESSOR and was informed she has half the fluids remaining the ultrasound. Patient reports of abdominal cramps and bloating. Patient denies taking any OTC medication. Patient denies any passage of tissues. ROS All systems reviewed and are negative except as per history of present illness. Medications Home Meds Active Scripts [Work Note] No Conflict Check Please excuse Ms. Kathia Gutierrez attending work from 12/02/2018 to 12/09/2018 due to her illness. Thanks Prov:ROSEMARY HENDERSON V. [employer]OUTE CONTRACTOR 12/04/18 Reported Medications Insulin Isophan/Regular (Humulin 70/30) 100 Units/Ml Susp, 25 UNIT SC HS, EA 12/01/18 Insulin Lispro (Humalog) 100 Unit/1 Ml Cartridge, 18 UNIT SQ AC MEALS, EA 12/01/18 Levothyroxine Sodium (Levothroid) 100 Mcg Tablet, 39 MCG PO BEFORE BREAKFAST, #30 TAB 12/01/18 Metformin Hcl* (Metformin Hcl*) 1,000 Mg Tablet, 1000 MG PO WITH BREAKFAST DINNE, #60 TAB 12/01/18 Vit #108/Iron/Fa ( ONE TABLET) 1 Each Tablet, 1 EACH PO DAILY 08/07/13 Allergies Allergies: Coded Allergies: No Known Allergies (Verified Allergy, Unknown, 01/20/19) PMhx/Soc Diabetes mellitus, preeclampsia,, PCOS. Thyroidectomy. History of Surgery: Yes (Appendix and galbladder removal, C section) Anesthesia Reaction: Yes (Nausea and vomitting) Hx Neurological Disorder: No Hx Respiratory Disorders: No Hx Cardiac Disorders: No Hx Psychiatric Problems: No Hx Miscellaneous Medical Probl: No Hx Alcohol Use: No Hx Substance Use: No Hx Tobacco Use: No FmHx Family History: No diabetes, No coronary disease, No other Physical Exam Vitals Vital Signs Date Temp Pulse Resp B/P (MAP) Pulse Ox O2 O2 Flow FiO2 Time Delivery Rate 01/20/19 97.8 85 18 152/84 99 15:40 (106) Physical Exam Const: No acute distress Head: Atraumatic Eyes: Normal Conjunctiva Resp: Clear to auscultation bilaterally Cardio: Regular rate and rhythm, no murmurs Abd: Soft, non tender, non distended. Normal bowel sounds Back: No midline or flank tenderness Ext: No cyanosis, or edema Neur: Awake and alert Psych: Normal Mood and Affect Result Diagram: 01/20/19 1646 Results 24 hrs Laboratory Tests Test 01/20/19 16:36 01/20/19 16:46 Urine Color YELLOW Urine Clarity SLIGHTLY CLOUDY Urine pH 5.0 Urine Specific [place] 1.021 Urine Ketones 1+ mg/dL Urine Nitrite NEGATIVE mg/dL Urine Bilirubin NEGATIVE mg/dL Urine Urobilinogen NEGATIVE mg/dL Urine Leukocyte Esterase NEGATIVE Jordy/ul Urine Microscopic RBC 0 /HPF Urine Microscopic WBC 1 /HPF Urine Squamous Epithelial Cells FEW /HPF Urine Mucus FEW /HPF Urine Hemoglobin NEGATIVE mg/dL Urine Glucose NEGATIVE mg/dL Urine Total Protein NEGATIVE mg/dl White Blood Count 12.8 10^3/ul Red Blood Count 4.24 10^6/ul Hemoglobin 12.5 g/dl Hematocrit 36.4 % Mean Corpuscular Volume 85.8 fl Mean Corpuscular Hemoglobin 29.5 pg Mean Corpuscular Hemoglobin Concent 34.3 g/dl Red Cell Distribution Width 12.7 % Platelet Count 396 10^3/UL Mean Platelet Volume 10.0 fl Immature Granulocytes % 0.700 % Neutrophils % 71.7 % Lymphocytes % 20.7 % Monocytes % 6.1 % Eosinophils % 0.4 % Basophils % 0.4 % Nucleated Red Blood Cells % 0.0 /100WBC Immature Granulocytes # 0.090 10^3/ul Neutrophils # 9.2 10^3/ul Lymphocytes # 2.7 10^3/ul Monocytes # 0.8 10^3/ul Eosinophils # 0.1 10^3/ul Basophils # 0.1 10^3/ul Nucleated Red Blood Cells # 0.0 10^3/ul Beta HCG, Quantitative 39974.0 mIU/ml Procedures/MDM Patient was seen and evaluated for threatened . Patient ultrasound shows living intrauterine gestation with an estimated 16 weeks and 4 days with a due date on 07/03/2019. Amniotic fluid MVP measuring 2.7 cm appears overall low. Patient informed to follow-up in 48 to 72 hours for repeat ultrasound and beta-hCG. He was informed to follow-up with NURSING PROFESSOR. Stable and ready for discharge Departure Diagnosis: Primary Impression: Threatened in first trimester Condition: Stable Patient Instructions: Possible Miscarriage (Threatened ) Referrals: [facility] Additional Instructions: Patient advised to return to the ED immediately for new or worsening symptoms. Patient advised to follow up with primary care provider in the next 24-48 hours. Patient verbalized understanding and agrees with treatment plan and course of action. If patient has no primary care they may follow up with [facility] + [facility] [address] [place] [id number] or [facility] [id number] [place] [id number] or [facility] [address] [place] [address] ALINA OTTO PA-C Jan 20, 2019 16:28
== END 2019-01-20 18:31 | disposition home or self-care (01) ==
LOC: FTE 15:38
DX: O20.0 Threatened abortion (principal); E03.9 Hypothyroidism, unspecified; O24.112 Pre-existing type 2 diabetes mellitus, in pregnancy, second trimester; O99.282 Endocrine, nutritional and metabolic diseases complicating pregnancy, second trimester; Z3A.16 16 weeks gestation of pregnancy; Z79.4 Long term (current) use of insulin
CPT/HCPCS: 36415; 76805; 81001; 84702; 85025; 86900; 86901; Z7502; 81003